=== PATIENT | female | born 1975 | race Caucasian/White ===

== ENCOUNTER → 2016-10-01 | Outpatient (CLI) | payer BC ==
--- NOTE | 2016-10-01 16:57 | CT ---
EXAMINATION TYPE: CT abdomen pelvis wo con DATE OF EXAM: 10/01/2016 4:14 PM COMPARISON: NONE INDICATION: Right lower quadrant pain DLP: 991 mGycm, Automated exposure control for dose reduction was used. CONTRAST: None Study performed without Oral Contrast TECHNIQUE: Axial images were obtained from above the diaphragm to the pubic rami in the axial plane a t 5 mm thick sections. Reconstructed images are reviewed on the computer in the coronal plane. FINDINGS: Limited CT sections are obtained the lung bases. The lung bases are clear. CT ABDOMEN: Liver: Normal Spleen: Normal Pancreas: Normal Adrenal glands: There is a 1.2 cm thickening of the distal tail of the right adrenal gland. There is diffuse thickening of the left adrenal gland 1.2 cm. Gallbladder: Decompressed. Kidneys: No masses are evident. No hydronephrosis is present. No cysts are present. Aorta: Minimal vascular calcification is within the aorta. Inferior vena cava: Normal. CT PELVIS: Loops of bowel within the abdomen and pelvis are normal. There are loops of bowel which are incom pletely distended or lack oral contrast limiting their evaluation. Appendix: Normal as visualized. Urinary bladder: Normal. Genitourinary structures: Uterus and ovaries are not identified. Osseous structures: No suspicious lytic or sclerotic lesions. IMPRESSIONS: 1. Small nodules bilateral adrenal glands. 2. Normal appendix. No suspicious changes for acute appendicitis are identified.
== END | disposition home or self-care (01) ==
LOC: RADCTMAIN 15:27
PROVIDERS: ATTEND Family Medicine
DX: E27.9 Disorder of adrenal gland, unspecified (principal)
CPT/HCPCS: 74176

== ENCOUNTER → 2016-10-07 | Outpatient (CLI) | payer BC | END | disposition home or self-care (01) | LOC: LABWHC1 06:58 | PROVIDERS: ATTEND Nurse Practitioner Adult Health | DX: E27.8 Other specified disorders of adrenal gland (principal) | CPT/HCPCS: 36415; 82088; 82530; 82533 ==

== ENCOUNTER → 2017-02-08 | Outpatient (CLI) | payer BC ==
--- NOTE | 2017-02-08 09:33 | CT ---
EXAMINATION TYPE: CT sinus wo con DATE OF EXAM: 02/08/2017 COMPARISON: NONE HISTORY: Pain around Lt eye and under both eyes, acute sinusitis CT DLP: 577.[address] of the paranasal sinuses was performed in the axial and coronal planes. Bone and soft tissue settings are submitted. The paranasal sinuses demonstrate normal aeration and development. The paranasal sinuses are free of mucosal thickening or air fluid level. The osteal meatal units are patent bilaterally. The nasal septum is midline. No bony destructive changes are seen within the field of view. IMPRESSION: Normal unenhanced CT of the paranasal sinuses.
== END | disposition home or self-care (01) ==
LOC: RADCTMAIN 08:43
PROVIDERS: ATTEND Otolaryngology
DX: J01.90 Acute sinusitis, unspecified (principal)
CPT/HCPCS: 70486

== ENCOUNTER 2017-09-11 11:20 | Emergency (ER) | payer BC ==
[2017-09-11] MEDS ORDERED: SODIUM CHLORIDE 0.9% 1,000 ML IV STA (12:13)
--- NOTE | 2017-09-11 12:28 | ED ---
General Adult HPI - General Chief complaint: Abdominal Pain Stated complaint: abdominal pain, radiating across and hip, lower ba Time Seen by Provider: 09/11/17 11:58 Source: patient, RN notes reviewed Mode of arrival: wheelchair Limitations: no limitations - History of Present Illness Initial comments: 42 yo female presents to the ER with cc of left-sided abdominal pain. She states she's had this for about a week now. She went to the doctor on Friday they thought may be a gastrointestinal issue. She is clear liquid diet. She states that she continues to have this pain and now she's having some central abdominal cramping. She makes to extensive surgery in the pelvic area. They were concerned due to her continued pain and the fact that does not seem to be improving so she thought that she should.Patient denies any recent fever, chills, shortness of breath, chest pain, back pain, nausea vomiting, numbness or tingling, dysuria or hematuria, constipation or diarrhea, headaches or visual changes, or any other current symptoms. - Related Data Previous Rx's Medication Instructions Recorded Dicyclomine [Bentyl] 10 mg PO TID #20 capsule 09/11/17 Allergies Allergy/AdvReac Type Severity Reaction Status Date / Time amoxicillin [Amoxicillin] Allergy Rash/Hives Verified 09/11/17 12:34 aspirin Allergy Rash/Hives Verified 09/11/17 12:34 cephalexin monohydrate Allergy Anaphylaxis Verified 09/11/17 12:34 [From Keflex] ciprofloxacin [From Cipro] Allergy Rash/Hives Verified 09/11/17 12:34 ciprofloxacin HCl Allergy Rash/Hives Verified 09/11/17 12:34 [From Cipro] diphenhydramine Allergy Rash/Hives Verified 09/11/17 12:34 [From Benadryl] Iodinated Contrast- Oral and Allergy Lip Verified 09/11/17 12:34 IV Dye Swelling [Iodinated Contrast Media - IV Dye] latex Allergy Rash/Hives Verified 09/11/17 12:34 methylprednisolone Allergy Rash/Hives Verified 09/11/17 12:34 [From Solu-Medrol] NSAIDS (Non-Steroidal Allergy Rash/Hives Verified 09/11/17 12:34 Anti-Inflamma penicillin G Allergy Rash/Hives Verified 09/11/17 12:34 sulfamethoxazole Allergy Rash/Hives Verified 09/11/17 12:34 [From Bactrim] trimethoprim [From Bactrim] Allergy Rash/Hives Verified 09/11/17 12:34 STEROIDS Allergy Rash/Hives Uncoded 09/11/17 12:34 Review of Systems ROS Statement: Those systems with pertinent positive or pertinent negative responses have been documented in the HPI. ROS Other: All systems not noted in ROS Statement are negative. Past Medical History Past Medical History: Asthma, GERD/Reflux, Hearing Disorder / Deafness Additional Past Medical History / Comment(s): HIATAL HERNIA, pelvic muscle disorder, adrenal ademoma History of Any Multi-Drug Resistant Organisms: None Reported Past Surgical History: Section, Hernia Repair, Hysterectomy Additional Past Surgical History / Comment(s): OOPHERECTOMY, WITH ADHESION REPAIR Past Psychological History: Anxiety Smoking Status: Current every day smoker Past Alcohol Use History: None Reported Past Drug Use History: None Reported General Exam Limitations: no limitations Head exam: Present: atraumatic, normocephalic, normal inspection ENT exam: Present: normal exam, mucous membranes moist Neck exam: Present: normal inspection. Absent: tenderness, meningismus, lymphadenopathy Respiratory exam: Present: normal lung sounds bilaterally. Absent: respiratory distress, wheezes, rales, rhonchi, stridor Cardiovascular Exam: Present: regular rate, normal rhythm, normal heart sounds. Absent: systolic murmur, diastolic murmur, rubs, gallop, clicks GI/Abdominal exam: Present: soft, tenderness (Mild suprapubic), normal bowel sounds. Absent: distended, guarding, rebound, rigid Back exam: Present: normal inspection, full ROM. Absent: tenderness Neurological exam: Present: alert, oriented X3 Psychiatric exam: Present: normal affect, normal mood Course Vital Signs 09/11/17 09/11/17 09/11/17 11:49 12:55 13:10 Temperature 97.8 F Pulse Rate 76 68 71 Respiratory 16 18 20 Rate Blood Pressure 156/97 162/82 135/82 O2 Sat by Pulse 100 100 99 Oximetry Medical Decision Making - Medical Decision Making 42-year-old female presents for left-sided abdominal pain. At this time CAT scan has been reviewed. We did discuss the adrenal glands and she states she has had a history of cysts on the she's having him followed before. He discussed the concern for possible colitis. We discussed this is consistent with her symptoms. We did discuss close follow-up with her doctor. We will start her on Bentyl for home. We discussed return parameters all questions. Patient stated that she understood we did discuss other etiologies. She is in agreement with this plan. All questions have been answered. At this time the patient will be discharged home. - Lab Data Result diagrams: 09/11/17 12:44 09/11/17 12:44 Lab Results 09/11/17 09/11/17 09/11/17 Range/Units 12:44 12:44 12:44 WBC 8.5 (3.8-10.6) k/uL RBC 5.00 (3.80-5.40) m/uL Hgb 14.7 (11.4-16.0) gm/dL Hct 46.4 H (34.0-46.0) % MCV 92.8 (80.0-100.0) fL MCH 29.4 (25.0-35.0) pg MCHC 31.6 (31.0-37.0) g/dL RDW 12.6 (11.5-15.5) % Plt Count 256 (150-450) k/uL Neutrophils % 56 % Lymphocytes % 34 % Monocytes % 5 % Eosinophils % 2 % Basophils % 1 % Neutrophils # 4.8 (1.3-7.7) k/uL Lymphocytes # 2.9 (1.0-4.8) k/uL Monocytes # 0.4 (0-1.0) k/uL Eosinophils # 0.2 (0-0.7) k/uL Basophils # 0.1 (0-0.2) k/uL Sodium 142 (137-145) mmol/L Potassium 4.9 (3.5-5.1) mmol/L Chloride 110 H (98-107) mmol/L Carbon Dioxide 22 (22-30) mmol/L Anion Gap 10 mmol/L BUN 8 (7-17) mg/dL Creatinine 0.66 (0.52-1.04) mg/dL Est GFR (MDRD) Af Amer >60 (>60 ml/min/1.73 sqM) Est GFR (MDRD) Non-Af >60 (>60 ml/min/1.73 sqM) Glucose 97 (74-99) mg/dL Calcium 9.6 (8.4-10.2) mg/dL Total Bilirubin 0.6 (0.2-1.3) mg/dL AST 30 (14-36) U/L ALT 19 (9-52) U/L Alkaline Phosphatase 76 (38-126) U/L Total Protein 7.6 (6.3-8.2) g/dL Albumin 4.5 (3.5-5.0) g/dL Amylase 77 (30-110) U/L Lipase 128 (23-300) U/L Urine Color Yellow Urine Appearance Clear (Clear) Urine pH 6.5 (5.0-8.0) Ur Specific A[place]lia 1.007 (1.001-1.035) Urine Protein Negative (Negative) Urine Glucose (UA) Negative (Negative) Urine Ketones Negative (Negative) Urine Blood Small H (Negative) Urine Nitrite Negative (Negative) Urine Bilirubin Negative (Negative) Urine Urobilinogen <2.0 (<2.0) mg/dL Ur Leukocyte Esterase Negative (Negative) Urine RBC 1 (0-5) /hpf Urine WBC 1 (0-5) /hpf Ur Squamous Epith Cells 4 (0-4) /hpf Urine Mucus Rare H (None) /hpf - Radiology Data Radiology results: report reviewed, image reviewed Disposition Clinical Impression: Colitis Disposition: HOME SELF-CARE Condition: Stable Instructions: Colitis (ED) Additional Instructions: Please use medication as discussed. Please follow up with family doctor if symptoms have not improved over the next two days. Please return to the emergency room if your symptoms increase or worsen or for any other concerns. Prescriptions: Dicyclomine [Bentyl] 10 mg PO TID #20 capsule Referrals: Franco Sabillon MD [Primary Care Provider] - 1-2 days Scott Galvan MD [STAFF PHYSICIAN] - 1-2 days Time of Disposition: 14:32
[2017-09-11 13:09] LABS: ALT 19 U/L (9-52); AST 30 U/L (14-36); Albumin 4.5 g/dL (3.5-5.0); Alkaline Phosphatase 76 U/L (38-126); Amylase 77 U/L (30-110); Anion Gap 10 mmol/L; Basophils # (A) 0.1 k/uL (0-0.2); Basophils % (A) 1 %; Blood Urea Nitrogen 8 mg/dL (7-17); Calcium 9.6 mg/dL (8.4-10.2); Carbon Dioxide 22 mmol/L (22-30); Chloride 110 mmol/L (98-107); Eosinophils # (A) 0.2 k/uL (0-0.7); Eosinophils % (A) 2 %; Glucose 97 mg/dL (74-99); HCT 46.4 % (34.0-46.0); HGB 14.7 gm/dL (11.4-16.0); Lipase 128 U/L (23-300); Lymphocytes # (A) 2.9 k/uL (1.0-4.8); Lymphocytes % (A) 34 %; MCH 29.4 pg (25.0-35.0); MCHC 31.6 g/dL (31.0-37.0); MCV 92.8 fL (80.0-100.0); Mean Platelet Volume 7.5; Monocytes # (A) 0.4 k/uL (0-1.0); Monocytes % (A) 5 %; Neutrophils # (A) 4.8 k/uL (1.3-7.7); Neutrophils % (A) 56 %; Platelet Count 256 k/uL (150-450); RDW 12.6 % (11.5-15.5); Sodium 142 mmol/L (137-145); Total Bilirubin 0.6 mg/dL (0.2-1.3); Total Protein 7.6 g/dL (6.3-8.2); WBC 8.5 k/uL (3.8-10.6)
[2017-09-11 13:19] LABS: Potassium 4.9 mmol/L (3.5-5.1)
[2017-09-11 13:33] LABS: Appearance,Urine Clear (Clear); Bilirubin,Urine Negative (Negative); Blood,Urine Small (Negative); Color,Urine Yellow; Glucose,Urine (UA) Negative (Negative); Ketones,Urine Negative (Negative); Leukocyte Esterase,Urine Negative (Negative); Mucus,Urine Rare /hpf; Nitrite,Urine Negative (Negative); PH, Urine 6.5 (5.0-8.0); Protein,Urine Negative (Negative); RBC,Urine 1 /hpf (0-5); Specific Gravity,Urine 1.007 (1.001-1.035); Squamous Epithelial Cell,Urine 4 /hpf (0-4); Urobilinogen,Urine <2.0 mg/dL (<2.0); WBC,Urine 1 /hpf (0-5)
--- NOTE | 2017-09-11 14:24 | CT ---
EXAMINATION TYPE: CT abdomen pelvis wo con DATE OF EXAM: 09/11/2017 COMPARISON: NONE HISTORY: Patient complains of epigastric to LUQ pain. CT DLP: 408.2 mGycm Automated exposure control for dose reduction was used. TECHNIQUE: Helical acquisition of images from the lung bases through the pelvis. FINDINGS: LUNG BASES: Some minimal areas of groundglass opacity suspected bilaterally. AORTA: No significant abnormality is appreciated. LIVER/GB: No significant abnormality is appreciated. PANCREAS: No significant abnormality is seen. SPLEEN: No significant abnormality is seen. ADRENALS: Right adrenal gland shows an 18 mm low-attenuation lesion likely adenoma, left adrenal glan d also shows some fullness in low attenuation likely adenoma. KIDNEYS: No significant abnormality is seen. REPRODUCTIVE ORGANS: Uterus and adnexal structures are not seen. URINARY BLADDER: No significant abnormality is seen. BOWEL: I question colonic wall thickening. Surgical clip is present in the pelvis the level of the c ul-de-sac. FREE AIR: No Free Air is visible. ASCITES: None visible. PELVIC ADENOPATHY: None visualized. RETROPERITONEAL ADENOPATHY: No Retroperitoneal Adenopathy visible. OSSEOUS STRUCTURES: No significant abnormality is seen. IMPRESSION: NONCONTRAST EXAM. THERE MAY BE UNDERLYING ALVEOLITIS AT THE LUNG BASES, CORRELATE. CORRELATE TO EXCLU DE COLITIS, ENTERITIS. FOLLOW-UP INDICATED. ADDITIONAL FINDINGS ABOVE. MRI MAY BE OF BENEFIT ADREN AL GLANDS. FOLLOW-UP TO ASSESS FOR STABILITY.
[2017-09-11] MEDS ORDERED: DICYCLOMINE 10 MG/ML 2 ML AMP IM STA (14:29)
[2017-09-11] MEDS ORDERED: FAMOTIDINE 20 MG/2 ML VIAL IV STA (14:29)
[2017-09-11 14:54] VITALS: BP 163/78; PULSE 72; RESP 18; TEMP 98
== END 2017-09-11 14:54 | disposition home or self-care (01) ==
LOC: EC 11:20
DX: O99.619 Diseases of the digestive system complicating pregnancy, unspecified trimester (principal); K52.9 Noninfective gastroenteritis and colitis, unspecified; O99.330 Smoking (tobacco) complicating pregnancy, unspecified trimester; F17.200 Nicotine dependence, unspecified, uncomplicated; Z88.0 Allergy status to penicillin; Z88.6 Allergy status to analgesic agent; Z88.1 Allergy status to other antibiotic agents; Z88.8 Allergy status to other drugs, medicaments and biological substances; Z91.041 Radiographic dye allergy status; Z91.040 Latex allergy status; Z88.2 Allergy status to sulfonamides; Z53.20 Procedure and treatment not carried out because of patient's decision for unspecified reasons; Z3A.00 Weeks of gestation of pregnancy not specified
CPT/HCPCS: 36415; 74176; 80053; 81001; 82150; 83690; 85025; 87086; 96360; 99284

== ENCOUNTER 2017-10-15 17:28 | Emergency (ER) | payer BC ==
[2017-10-15 17:32] VITALS: RESP 18; TEMP 98.4
--- NOTE | 2017-10-15 17:51 | ED ---
General Adult HPI - General Chief complaint: Back Pain/Injury Stated complaint: right rib pain Time Seen by Provider: 10/15/17 17:33 Source: patient, RN notes reviewed Mode of arrival: ambulatory Limitations: no limitations - History of Present Illness Initial comments: 42-year-old female presents to the emergency department with a chief complaint of right-sided rib pain. Patient states she was leaning over the bathtub giving her niece. Back and she leaned on her rib and felt a pop. Patient states she she had an instant of pain and then it went away. Patient states when she woke up she still has not seen. States she touches her rib just right elbow causes her discomfort. She states she takes a big deep breaths she'll feel that rib pop. She states that she is not short of breath with this. It does not radiate into her abdomen. She states that she even touches the side of the rib it'll cause pain to the front of the right. She denies any other injuries with this. She denies any shortness of breath with this. She denies or chills. She states she's been taking Tylenol which hasn't given her much relief. She states that she just moves or takes in a certain way she'll continue to have pain so she thought that she should be seen. Patient denies any recent fever, chills, shortness of breath, chest pain, back pain, abdominal pain, nausea vomiting, numbness or tingling, dysuria or hematuria, constipation or diarrhea, headaches or visual changes, or any other current symptoms. - Related Data Home Medications Medication Instructions Recorded Confirmed No Known Home Medications [No 10/15/17 10/15/17 Known Home Medications] Allergies Allergy/AdvReac Type Severity Reaction Status Date / Time amoxicillin [Amoxicillin] Allergy Rash/Hives Verified 10/15/17 17:49 aspirin Allergy Rash/Hives Verified 10/15/17 17:49 cephalexin monohydrate Allergy Anaphylaxis Verified 10/15/17 17:49 [From Keflex] ciprofloxacin [From Cipro] Allergy Rash/Hives Verified 10/15/17 17:49 ciprofloxacin HCl Allergy Rash/Hives Verified 10/15/17 17:49 [From Cipro] diphenhydramine Allergy Rash/Hives Verified 10/15/17 17:49 [From Benadryl] Iodinated Contrast- Oral and Allergy Lip Verified 10/15/17 17:49 IV Dye Swelling [Iodinated Contrast Media - IV Dye] latex Allergy Rash/Hives Verified 10/15/17 17:49 methylprednisolone Allergy Rash/Hives Verified 10/15/17 17:49 [From Solu-Medrol] NSAIDS (Non-Steroidal Allergy Rash/Hives Verified 10/15/17 17:49 Anti-Inflamma penicillin G Allergy Rash/Hives Verified 10/15/17 17:49 sulfamethoxazole Allergy Rash/Hives Verified 10/15/17 17:49 [From Bactrim] trimethoprim [From Bactrim] Allergy Rash/Hives Verified 10/15/17 17:49 STEROIDS Allergy Rash/Hives Uncoded 10/15/17 17:32 Review of Systems ROS Statement: Those systems with pertinent positive or pertinent negative responses have been documented in the HPI. ROS Other: All systems not noted in ROS Statement are negative. Past Medical History Past Medical History: Asthma, GERD/Reflux, Hearing Disorder / Deafness Additional Past Medical History / Comment(s): HIATAL HERNIA, pelvic muscle disorder, adrenal ademoma History of Any Multi-Drug Resistant Organisms: None Reported Past Surgical History: Section, Hernia Repair, Hysterectomy Additional Past Surgical History / Comment(s): OOPHERECTOMY, WITH ADHESION REPAIR Past Psychological History: Anxiety Smoking Status: Current every day smoker Past Alcohol Use History: None Reported Past Drug Use History: None Reported General Exam Limitations: no limitations General appearance: alert, in no apparent distress ENT exam: Present: normal exam, mucous membranes moist Neck exam: Present: normal inspection. Absent: tenderness, meningismus, lymphadenopathy Respiratory exam: Present: normal lung sounds bilaterally, chest wall tenderness (Right anterior rib lower). Absent: respiratory distress, wheezes, rales, rhonchi, stridor Cardiovascular Exam: Present: regular rate ( and lower), normal rhythm, normal heart sounds. Absent: systolic murmur, diastolic murmur, rubs, gallop, clicks GI/Abdominal exam: Present: soft, normal bowel sounds. Absent: distended, tenderness, guarding, rebound, rigid Neurological exam: Present: alert, oriented X3 Psychiatric exam: Present: normal affect, normal mood Skin exam: Present: warm, dry, intact, normal color. Absent: rash Course Vital Signs 10/15/17 17:30 Temperature 98.4 F Pulse Rate 74 Respiratory 18 Rate Blood Pressure 147/68 O2 Sat by Pulse 98 Oximetry Medical Decision Making - Medical Decision Making 42-year-old female presents to the emergency Department what appears to be right rib sprain. It is tender to touch and reproducible to touch. X-rays reviewed and negative. This time we discussed continued use of Tylenol. We did discuss ice. We discussed return parameters. She has been given plan. All questions have been answered. - Radiology Data Radiology results: report reviewed, image reviewed Disposition Clinical Impression: Sprain of ribs, initial encounter Disposition: HOME SELF-CARE Condition: Stable Instructions: Rib Contusion (ED) Additional Instructions: Please use medication as discussed. Please follow up with family doctor if symptoms have not improved over the next two days. Please return to the emergency room if your symptoms increase or worsen or for any other concerns. Referrals: Franco Sabillon MD [Primary Care Provider] - 1-2 days Time of Disposition: 18:46
--- NOTE | 2017-10-15 18:34 | XR ---
EXAMINATION TYPE: XR ribs RT w pa chest xray DATE OF EXAM: 10/15/2017 COMPARISON: 03/15/2015 HISTORY: Rib pain TECHNIQUE: 5 views FINDINGS: Heart and mediastinum are normal. Lungs are clear of consolidation. There is no sign of ple ural effusion or pneumothorax. I see no rib fracture. IMPRESSION: No active cardiopulmonary disease. No rib fracture seen. No change.
[2017-10-15 19:01] VITALS: BP 168/76; PULSE 63
== END 2017-10-15 18:59 | disposition home or self-care (01) ==
LOC: EC 17:28
DX: S23.41XA Sprain of ribs, initial encounter (principal); F17.200 Nicotine dependence, unspecified, uncomplicated; Z88.0 Allergy status to penicillin; Z88.1 Allergy status to other antibiotic agents; Z88.2 Allergy status to sulfonamides; Z88.6 Allergy status to analgesic agent; Z88.8 Allergy status to other drugs, medicaments and biological substances; Z91.040 Latex allergy status; Z91.041 Radiographic dye allergy status; X50.0XXA Overexertion from strenuous movement or load, initial encounter
CPT/HCPCS: 99283

== ENCOUNTER → 2019-07-07 | Outpatient (CLI) | payer BC ==
--- NOTE | 2019-07-08 13:26 | MM ---
Reason for exam: screening (asymptomatic). Last mammogram was performed 1 year and 3 months ago. History: Family history of breast cancer in aunt and breast cancer in grandmother. Physical Findings: A clinical breast exam by your physician is recommended on an annual basis and results should be correlated with mammographic findings. MG 3D Screening Mammo W/Cad Bilateral CC and MLO view(s) were taken. Prior study comparison: April 07, 2018, mammogram, performed at [facility]. There are scattered fibroglandular densities. No suspicious abnormality. No significant changes when compared with prior studies. ASSESSMENT: Negative, BI-RAD 1 RECOMMENDATION: Routine screening mammogram of both breasts in 1 year.
== END | disposition home or self-care (01) ==
LOC: RADMAMWWP 14:06
PROVIDERS: ATTEND Family Medicine
DX: Z12.31 Encounter for screening mammogram for malignant neoplasm of breast (principal)
CPT/HCPCS: 77063; 77067

== ENCOUNTER → 2020-02-08 | Outpatient (CLI) | payer BC ==
--- NOTE | 2020-02-08 09:26 | CT ---
EXAMINATION TYPE: CT abdomen pelvis wo con DATE OF EXAM: 02/08/2020 COMPARISON: Prior CT 09/11/2017 HISTORY: LLQ pain with diarrhea for [address] DLP: 575.3 mGycm Automated exposure control for dose reduction was used. TECHNIQUE: Helical acquisition of images from the lung bases through the pelvis. FINDINGS: Lung bases show probable mosaic perfusion, may reflect areas of hypoventilatory change as o n prior, there is no pleural or pericardial effusion. Lack of contrast may compromise sensitivity of the exam. AORTA: No significant abnormality is appreciated. LIVER/GB: No significant abnormality is appreciated. PANCREAS: No significant abnormality is seen. SPLEEN: No significant abnormality is seen. ADRENALS: Left adrenal gland shows a 14 mm low dense focus likely adenoma right adrenal gland also sh ows a similar appearance with low dense mass 16 mm likely adenoma, findings are stable. KIDNEYS: No significant abnormality is seen. REPRODUCTIVE ORGANS: Not seen. URINARY BLADDER: No significant abnormality is seen. BOWEL: Low density throughout the colon. Appendix is normal. FREE AIR: No Free Air is visible. ASCITES: None visible. PELVIC ADENOPATHY: None visualized. RETROPERITONEAL ADENOPATHY: No Retroperitoneal Adenopathy visible. OSSEOUS STRUCTURES: Degenerative changes noted at the lumbosacral junction. IMPRESSION: CORRELATE FOR COLITIS. ADRENAL ADENOMAS. NONCONTRAST EXAM. Additional findings above.
== END | disposition home or self-care (01) ==
LOC: RADCTMAIN 08:50
PROVIDERS: ATTEND Family Medicine
DX: K57.92 Diverticulitis of intestine, part unspecified, without perforation or abscess without bleeding (principal)
CPT/HCPCS: 74176

== ENCOUNTER 2020-05-14 11:58 | Emergency (ER) | payer BC ==
[2020-05-14 12:06] VITALS: BP 167/95; PULSE 82; RESP 16; TEMP 99.1
--- NOTE | 2020-05-14 12:27 | ED ---
ENT HPI - General Chief complaint: ENT Stated complaint: lump in nose and face pain Time Seen by Provider: 05/14/20 12:14 Source: patient, RN notes reviewed Mode of arrival: ambulatory Limitations: no limitations - History of Present Illness Initial comments: 45-year-old female presented to emergency department with chief complaint of left nostril cyst. Patient states started recently was seen by ENT visit seem to be increasing. They told her there was just a cystoscopy was not infected she states that the irritated her nostril and states that isn't inflamed now. Patient states she has multiple drug ALLERGIES. Patient has appears or chills she did try some Flonase. Patient states that she does have close follow-up - Related Data Previous Rx's Medication Instructions Recorded Azithromycin [Zithromax Z-pack (6 0 mg PO DIRECTED #1 pack 05/14/20 tabs)] Allergies Allergy/AdvReac Type Severity Reaction Status Date / Time amoxicillin [Amoxicillin] Allergy Rash/Hives Verified 05/14/20 12:06 aspirin Allergy Rash/Hives Verified 05/14/20 12:06 cephalexin monohydrate Allergy Anaphylaxis Verified 05/14/20 12:06 [From Keflex] ciprofloxacin [From Cipro] Allergy Rash/Hives Verified 05/14/20 12:06 ciprofloxacin HCl Allergy Rash/Hives Verified 05/14/20 12:06 [From Cipro] diphenhydramine Allergy Rash/Hives Verified 05/14/20 12:06 [From Benadryl] Iodinated Contrast Media Allergy Lip Verified 05/14/20 12:06 [Iodinated Contrast Media - Swelling IV Dye] latex Allergy Rash/Hives Verified 05/14/20 12:06 methylprednisolone Allergy Rash/Hives Verified 05/14/20 12:06 [From Solu-Medrol] NSAIDS (Non-Steroidal Allergy Rash/Hives Verified 05/14/20 12:06 Anti-Inflamma penicillin G Allergy Rash/Hives Verified 05/14/20 12:06 sulfamethoxazole Allergy Rash/Hives Verified 05/14/20 12:06 [From Bactrim] trimethoprim [From Bactrim] Allergy Rash/Hives Verified 05/14/20 12:06 STEROIDS Allergy Rash/Hives Uncoded 05/14/20 12:06 Review of Systems ROS Statement: Those systems with pertinent positive or pertinent negative responses have been documented in the HPI. ROS Other: All systems not noted in ROS Statement are negative. Past Medical History Past Medical History: Asthma, GERD/Reflux, Hearing Disorder / Deafness Additional Past Medical History / Comment(s): HIATAL HERNIA, pelvic muscle disorder, adrenal ademoma History of Any Multi-Drug Resistant Organisms: None Reported Past Surgical History: Section, Hernia Repair, Hysterectomy Additional Past Surgical History / Comment(s): OOPHERECTOMY, WITH ADHESION REPAIR Past Psychological History: Anxiety Smoking Status: Current every day smoker Past Alcohol Use History: None Reported Past Drug Use History: None Reported General Exam Limitations: no limitations General appearance: alert, in no apparent distress Head exam: Present: atraumatic, normocephalic, normal inspection Eye exam: Present: normal appearance, PERRL, EOMI. Absent: scleral icterus, conjunctival injection, periorbital swelling ENT exam: Present: normal oropharynx, mucous membranes moist, TM's normal bilaterally, normal external ear exam, other (Left nostril on the base there is small fluctuant cysts, there is erythema and nasal mucosa). Absent: normal exam Neck exam: Present: normal inspection. Absent: tenderness, meningismus, lymphadenopathy Respiratory exam: Present: normal lung sounds bilaterally. Absent: respiratory distress, wheezes, rales, rhonchi, stridor Cardiovascular Exam: Present: regular rate, normal rhythm, normal heart sounds. Absent: systolic murmur, diastolic murmur, rubs, gallop, clicks Course Vital Signs 05/14/20 12:03 Temperature 99.1 F Pulse Rate 82 Respiratory 16 Rate Blood Pressure 167/95 O2 Sat by Pulse 98 Oximetry Medical Decision Making - Medical Decision Making 45-year-old female presented for left nostril pain, cyst. There appears to be superficial infection of the nasal surface. There is a cyst noted that is not infected. Patient reports that she has severe ALLERGIES to almost all antibiotics only antibiotics she is willing to take his azithromycin. We discussed possibility of topical antibiotics patient refuses. She'll follow-up with ENT and return for any worsening symptoms. Disposition Clinical Impression: Cyst of nasal cavity Disposition: HOME SELF-CARE Condition: Stable Instructions (If sedation given, give patient instructions): Cyst (ED) Additional Instructions: Please return to the Emergency Department if symptoms worsen or any other concerns. Prescriptions: Azithromycin [Zithromax Z-pack (6 tabs)] 0 mg PO DIRECTED #1 pack Is patient prescribed a controlled substance at d/c from ED?: No Referrals: Franco Sabillon MD [Primary Care Provider] - 1-2 days Time of Disposition: 12:27
== END 2020-05-14 12:53 | disposition home or self-care (01) ==
LOC: EC 11:58
DX: J34.1 Cyst and mucocele of nose and nasal sinus (principal); H91.90 Unspecified hearing loss, unspecified ear; F17.200 Nicotine dependence, unspecified, uncomplicated; Z88.0 Allergy status to penicillin; Z88.6 Allergy status to analgesic agent; Z88.1 Allergy status to other antibiotic agents; Z91.041 Radiographic dye allergy status; Z91.040 Latex allergy status; Z88.8 Allergy status to other drugs, medicaments and biological substances; Z88.2 Allergy status to sulfonamides
CPT/HCPCS: 99283

== ENCOUNTER 2020-07-25 12:22 | Emergency (ER) | payer BC ==
[2020-07-25 12:26] VITALS: RESP 16; TEMP 98.8
[2020-07-25] MEDS ORDERED: SODIUM CHLORIDE 0.9% 1,000 ML IV STA (12:43)
--- NOTE | 2020-07-25 12:48 | ED ---
General Adult HPI - General Chief complaint: Abdominal Pain Stated complaint: abd pain Time Seen by Provider: 07/25/20 12:36 Source: patient, RN notes reviewed Mode of arrival: ambulatory Limitations: no limitations - History of Present Illness Initial comments: 45-year-old female with a past medical history of GERD, hiatal hernia, pelvic still disorder resents to the emergency room for lower abdominal pain. States this has been on and off for about 5 days. States it comes and goes. Denies any pain at this time. Patient has been having diarrhea for the past 5 days on and off. Patient states when she drinks a lot of fluids this worsens the bianca rrhea. Patient states she is also having normal bowel movements. She admits to nausea on and off but denies vomiting. Denies any nausea at this time. Denies fevers or chills. Patient does states she has had pain with urination a few times however denies any burning sensation.patient tested negative for Covid with in the past couple days. Patient has no other complaints at this time including shortness of breath, chest pain, vomiting, headache, or visual changes. - Related Data Home Medications Medication Instructions Recorded Confirmed No Known Home Medications 07/25/20 07/25/20 Allergies Allergy/AdvReac Type Severity Reaction Status Date / Time amoxicillin [Amoxicillin] Allergy Rash/Hives Verified 07/25/20 13:37 aspirin Allergy Rash/Hives Verified 07/25/20 13:37 cephalexin monohydrate Allergy Anaphylaxis Verified 07/25/20 13:37 [From Keflex] ciprofloxacin [From Cipro] Allergy Rash/Hives Verified 07/25/20 13:37 ciprofloxacin HCl Allergy Rash/Hives Verified 07/25/20 13:37 [From Cipro] diphenhydramine Allergy Rash/Hives Verified 07/25/20 13:37 [From Benadryl] Iodinated Contrast Media Allergy Lip Verified 07/25/20 13:37 [Iodinated Contrast Media - Swelling IV Dye] latex Allergy Rash/Hives Verified 07/25/20 13:37 methylprednisolone Allergy Rash/Hives Verified 07/25/20 13:37 [From Solu-Medrol] NSAIDS (Non-Steroidal Allergy Rash/Hives Verified 07/25/20 13:37 Anti-Inflamma penicillin G Allergy Rash/Hives Verified 07/25/20 13:37 sulfamethoxazole Allergy Rash/Hives Verified 07/25/20 13:37 [From Bactrim] trimethoprim [From Bactrim] Allergy Rash/Hives Verified 07/25/20 13:37 STEROIDS Allergy Rash/Hives Uncoded 07/25/20 12:28 Review of Systems ROS Statement: Those systems with pertinent positive or pertinent negative responses have been documented in the HPI. ROS Other: All systems not noted in ROS Statement are negative. Past Medical History Past Medical History: Asthma, GERD/Reflux, Hearing Disorder / Deafness Additional Past Medical History / Comment(s): HIATAL HERNIA, pelvic muscle disorder, adrenal ademoma History of Any Multi-Drug Resistant Organisms: None Reported Past Surgical History: Section, Hernia Repair, Hysterectomy Additional Past Surgical History / Comment(s): OOPHERECTOMY, WITH ADHESION REPAIR Past Psychological History: Anxiety Smoking Status: Current every day smoker Past Alcohol Use History: None Reported Past Drug Use History: None Reported General Exam Limitations: no limitations General appearance: alert, in no apparent distress Head exam: Present: atraumatic, normocephalic, normal inspection Eye exam: Present: normal appearance, PERRL, EOMI. Absent: scleral icterus, conjunctival injection, periorbital swelling ENT exam: Present: normal exam, mucous membranes moist Neck exam: Present: normal inspection, full ROM. Absent: tenderness, meningismus, lymphadenopathy Respiratory exam: Present: normal lung sounds bilaterally. Absent: respiratory distress, wheezes, rales, rhonchi, stridor Cardiovascular Exam: Present: regular rate, normal rhythm, normal heart sounds. Absent: systolic murmur, diastolic murmur, rubs, gallop, clicks GI/Abdominal exam: Present: soft, normal bowel sounds. Absent: distended, tenderness, guarding, rebound, rigid Back exam: Absent: CVA tenderness (R), CVA tenderness (L) Course Vital Signs 07/25/20 12:24 Temperature 98.8 F Pulse Rate 87 Respiratory 16 Rate Blood Pressure 172/91 O2 Sat by Pulse 100 Oximetry Medical Decision Making - Medical Decision Making Those are stable. CBC CMP unremarkable. Urinalysis does not show any evidence of infection. No chance of as patient has a history of hysterectomy and oophorectomy. CT abdomen and pelvis reveals emphysema as well as bilateral lipid rich adrenal adenomas or redemonstrated. Patient is aware of these. No acute inflammatory processes identified. Patient's symptoms could be related to her diarrhea and gastroenteritis Recommend she follow up with her doctor and return here for any worsening symptoms. - Lab Data Result diagrams: 07/25/20 12:53 07/25/20 12:53 Lab Results 07/25/20 07/25/20 07/25/20 Range/Units 12:53 12:53 12:53 WBC 10.5 (3.8-10.6) k/uL RBC 5.17 (3.80-5.40) m/uL Hgb 15.8 (11.4-16.0) gm/dL Hct 47.0 H (34.0-46.0) % MCV 91.0 (80.0-100.0) fL MCH 30.6 (25.0-35.0) pg MCHC 33.7 (31.0-37.0) g/dL RDW 12.8 (11.5-15.5) % Plt Count 297 (150-450) k/uL MPV 6.8 Neutrophils % 54 % Lymphocytes % 38 % Monocytes % 4 % Eosinophils % 1 % Basophils % 2 % Neutrophils # 5.7 (1.3-7.7) k/uL Lymphocytes # 4.0 (1.0-4.8) k/uL Monocytes # 0.5 (0-1.0) k/uL Eosinophils # 0.1 (0-0.7) k/uL Basophils # 0.2 (0-0.2) k/uL Sodium 138 (137-145) mmol/L Potassium 4.6 (3.5-5.1) mmol/L Chloride 109 H (98-107) mmol/L Carbon Dioxide 21 L (22-30) mmol/L Anion Gap 8 mmol/L BUN 9 (7-17) mg/dL Creatinine 0.61 (0.52-1.04) mg/dL Est GFR (CKD-EPI)AfAm >90 (>60 ml/min/1.73 sqM) Est GFR (CKD-EPI)NonAf >90 (>60 ml/min/1.73 sqM) Glucose 103 H (74-99) mg/dL Calcium 9.7 (8.4-10.2) mg/dL Total Bilirubin 0.6 (0.2-1.3) mg/dL AST 27 (14-36) U/L ALT 20 (4-34) U/L Alkaline Phosphatase 98 (38-126) U/L Total Protein 8.2 (6.3-8.2) g/dL Albumin 4.7 (3.5-5.0) g/dL Amylase 94 (30-110) U/L Lipase 133 (23-300) U/L Urine Color Light Yellow Urine Appearance Clear (Clear) Urine pH 6.5 (5.0-8.0) Ur Specific [place] 1.004 (1.001-1.035) Urine Protein Negative (Negative) Urine Glucose (UA) Negative (Negative) Urine Ketones Negative (Negative) Urine Blood Trace H (Negative) Urine Nitrite Negative (Negative) Urine Bilirubin Negative (Negative) Urine Urobilinogen <2.0 (<2.0) mg/dL Ur Leukocyte Esterase Negative (Negative) Urine RBC 1 (0-5) /hpf Urine WBC <1 (0-5) /hpf Ur Squamous Epith Cells 1 (0-4) /hpf Disposition Clinical Impression: Abdominal pain Disposition: HOME SELF-CARE Condition: Good Instructions (If sedation given, give patient instructions): Abdominal Pain (ED), Gastroenteritis (ED) Additional Instructions: Please follow-up with your doctor in one to 2 days. Drink any fluids. If you have any worsening symptoms return to the emergency room. Is patient prescribed a controlled substance at d/c from ED?: No Referrals: Franco Sabillon MD [Primary Care Provider] - 1-2 days Time of Disposition: 15:51
[2020-07-25 13:13] LABS: Basophils # (A) 0.2 k/uL (0-0.2); Basophils % (A) 2 %; Eosinophils # (A) 0.1 k/uL (0-0.7); Eosinophils % (A) 1 %; HGB 15.8 gm/dL (11.4-16.0); Lymphocytes % (A) 38 %; MCH 30.6 pg (25.0-35.0); MCHC 33.7 g/dL (31.0-37.0); Mean Platelet Volume 6.8; Monocytes # (A) 0.5 k/uL (0-1.0); Monocytes % (A) 4 %; Neutrophils # (A) 5.7 k/uL (1.3-7.7); Neutrophils % (A) 54 %; Platelet Count 297 k/uL (150-450); RBC 5.17 m/uL (3.80-5.40); RDW 12.8 % (11.5-15.5); WBC 10.5 k/uL (3.8-10.6)
[2020-07-25 13:16] LABS: Appearance,Urine Clear (Clear); Bilirubin,Urine Negative (Negative); Blood,Urine Trace (Negative); Color,Urine Light Yellow; Glucose,Urine (UA) Negative (Negative); Ketones,Urine Negative (Negative); Leukocyte Esterase,Urine Negative (Negative); Nitrite,Urine Negative (Negative); PH, Urine 6.5 (5.0-8.0); Protein,Urine Negative (Negative); RBC,Urine 1 /hpf (0-5); Specific Gravity,Urine 1.004 (1.001-1.035); Squamous Epithelial Cell,Urine 1 /hpf (0-4); Urobilinogen,Urine <2.0 mg/dL (<2.0); WBC,Urine <1 /hpf (0-5)
[2020-07-25 13:27] LABS: ALT 20 U/L (4-34); AST 27 U/L (14-36); African American GFR (CKD) >90 (>60 ml/min/1.73 sqM); Albumin 4.7 g/dL (3.5-5.0); Alkaline Phosphatase 98 U/L (38-126); Amylase 94 U/L (30-110); Anion Gap 8 mmol/L; Blood Urea Nitrogen 9 mg/dL (7-17); Calcium 9.7 mg/dL (8.4-10.2); Carbon Dioxide 21 mmol/L (22-30); Chloride 109 mmol/L (98-107); Glucose 103 mg/dL (74-99); Lipase 133 U/L (23-300); Non-African American GFR(CKD) >90 (>60 ml/min/1.73 sqM); Potassium 4.6 mmol/L (3.5-5.1); Sodium 138 mmol/L (137-145); Total Bilirubin 0.6 mg/dL (0.2-1.3); Total Protein 8.2 g/dL (6.3-8.2)
--- NOTE | 2020-07-25 15:40 | CT ---
EXAMINATION TYPE: CT abdomen pelvis wo con DATE OF EXAM: 07/25/2020 COMPARISON: 02/08/2020 HISTORY: 45-year-old female subumbilical pelvic pain CT DLP: 742.4 mGycm. Automated exposure control for dose reduction was used. TECHNIQUE: Contiguous axial scanning of the abdomen and pelvis without IV contrast. Coronal and sagit emery reconstructions performed. FINDINGS: Heart normal size without pericardial effusion. Air trapping and emphysematous change in the visualiz ed lower lungs. No pleural effusion. Tiny hiatal hernia. Noncontrast appearance of the liver, gallbladder, kidneys, spleen with hilar splenule, and pancreas s how no gross abnormality by noncontrast CT. No mesenteric or retroperitoneal lymphadenopathy. Low-density 1.6 cm nodule right adrenal gland and 1.5 cm left adrenal gland. No dilated small bowel, free fluid, or free air. Mild stool. No pericolonic inflammatory change. Appendix not clearly identified. No secondary finding s of acute appendicitis in the right lower quadrant. Bladder partially distended. Uterus surgically absent. Neither ovary is visualized. No abnormal fluid collection the pelvis or pelvic lymphadenopathy. Small pelvic lymph nodes. Suspect an old tubal ligation clip within the cul-de-sac, unchanged. Bones: Moderate degenerative disc disease L5-S1. IMPRESSION: 1. Emphysema. Additional air-trapping within the visualized lower lungs could reflect small airways disease. 2. Bilateral lipid rich adrenal adenomas measuring up to 1.6 cm redemonstrated. 3. No acute inflammatory process identified in the abdomen or pelvis to explain the patient's sympto ms.
[2020-07-25 16:00] VITALS: BP 160/87; PULSE 69
== END 2020-07-25 16:00 | disposition home or self-care (01) ==
LOC: EC 12:22
DX: R10.30 Lower abdominal pain, unspecified (principal); R11.0 Nausea; R19.7 Diarrhea, unspecified; D35.02 Benign neoplasm of left adrenal gland; D35.01 Benign neoplasm of right adrenal gland; F17.200 Nicotine dependence, unspecified, uncomplicated; Z88.0 Allergy status to penicillin; Z88.1 Allergy status to other antibiotic agents; Z88.2 Allergy status to sulfonamides; Z88.5 Allergy status to narcotic agent; Z88.6 Allergy status to analgesic agent; Z88.7 Allergy status to serum and vaccine; Z88.8 Allergy status to other drugs, medicaments and biological substances; Z91.040 Latex allergy status; Z91.041 Radiographic dye allergy status; Z90.722 Acquired absence of ovaries, bilateral; Z90.710 Acquired absence of both cervix and uterus
CPT/HCPCS: 36415; 74176; 80053; 81001; 82150; 83690; 85025; 96360; 99284

== ENCOUNTER 2020-07-26 20:24 | Emergency (ER) | payer BC ==
--- NOTE | 2020-07-26 21:22 | XR ---
EXAMINATION TYPE: XR KUB DATE OF EXAM: 07/26/2020 COMPARISON: 03/12/2015 HISTORY: Abdominal pain TECHNIQUE: FINDINGS: There is no sign of intestinal obstruction or pneumoperitoneum. Fecal pattern is normal. Olivia ng bases are clear. There are no pathologic calcifications over the kidneys. There is no evidence of a mass. There is single surgical clip in the midline pelvis. IMPRESSION: Nonacute abdomen. No change.
--- NOTE | 2020-07-26 21:38 | ED ---
Abdominal Pain HPI - General Chief Complaint: Abdominal Pain Stated Complaint: Revisit ABD pain Time Seen by Provider: 07/26/20 20:31 Source: patient Mode of arrival: ambulatory Limitations: no limitations - History of Present Illness Initial Comments: Patient is a 45-year-old female presenting to the emergency Department with complaints of lower abdominal cramping that started this evening after she ate dinner. Patient was seen and evaluated yesterday for similar complaint. She had normal labs and CT of the abdomen. She was diagnosed with possible gastritis or gastroenteritis. Patient states that today she was feeling better had a normal breakfast and lunch, she had showed a chicken and a tortilla for dinner and then started having some lower abdominal cramping. Patient states she felt like she needed to have a bowel movement but wasn't able to. She has been passing gas. She's been having regular bowel movements for the past week. She denies any fever or chills. She denies any nausea or vomiting. She states she does have extensive history of multiple abdominal surgeries for adhesions and hysterectomy, umbilical hernia. She states at this time her cramping is intermittent, she does not want anything for her pain. She denies any other complaints at this time. Upon arrival to the ER, her vital signs are stable. - Related Data Home Medications Medication Instructions Recorded Confirmed Acetaminophen [Tylenol] 1,000 mg PO Q4-6H PRN 07/26/20 07/26/20 Previous Rx's Medication Instructions Recorded Dicyclomine [Bentyl] 20 mg PO TID #20 tablet 07/26/20 Allergies Allergy/AdvReac Type Severity Reaction Status Date / Time amoxicillin [Amoxicillin] Allergy Rash/Hives Verified 07/26/20 20:57 aspirin Allergy Rash/Hives Verified 07/26/20 20:57 cephalexin monohydrate Allergy Anaphylaxis Verified 07/26/20 20:57 [From Keflex] ciprofloxacin [From Cipro] Allergy Rash/Hives Verified 07/26/20 20:57 ciprofloxacin HCl Allergy Rash/Hives Verified 07/26/20 20:57 [From Cipro] diphenhydramine Allergy Rash/Hives Verified 07/26/20 20:57 [From Benadryl] Iodinated Contrast Media Allergy Lip Verified 07/26/20 20:57 [Iodinated Contrast Media - Swelling IV Dye] latex Allergy Rash/Hives Verified 07/26/20 20:57 methylprednisolone Allergy Rash/Hives Verified 07/26/20 20:57 [From Solu-Medrol] NSAIDS (Non-Steroidal Allergy Rash/Hives Verified 07/26/20 20:57 Anti-Inflamma penicillin G Allergy Rash/Hives Verified 07/26/20 20:57 sulfamethoxazole Allergy Rash/Hives Verified 07/26/20 20:57 [From Bactrim] trimethoprim [From Bactrim] Allergy Rash/Hives Verified 07/26/20 20:57 STEROIDS Allergy Rash/Hives Uncoded 07/26/20 20:28 Review of Systems ROS Statement: Those systems with pertinent positive or pertinent negative responses have been documented in the HPI. ROS Other: All systems not noted in ROS Statement are negative. Past Medical History Past Medical History: Asthma, GERD/Reflux, Hearing Disorder / Deafness Additional Past Medical History / Comment(s): HIATAL HERNIA, pelvic muscle disorder, adrenal ademoma History of Any Multi-Drug Resistant Organisms: None Reported Past Surgical History: Section, Hernia Repair, Hysterectomy Additional Past Surgical History / Comment(s): OOPHERECTOMY, WITH ADHESION REPAIR Past Psychological History: Anxiety Smoking Status: Current every day smoker Past Alcohol Use History: None Reported Past Drug Use History: None Reported General Exam - General Exam Comments Initial Comments: GENERAL: Patient is well-developed and well-nourished. Patient is nontoxic and in no acute distress. HEAD: Atraumatic, normocephalic. EYES: Pupils equal round and reactive to light, extraocular movements intact, sclera anicteric, conjunctiva are normal. Eyelids were unremarkable. ENT: TMs normal, nares patent, oropharynx clear without exudates. Moist mucous membranes. NECK: Normal range of motion, supple without lymphadenopathy or JVD. LUNGS: Unlabored respirations. Breath sounds clear to auscultation bilaterally and equal. No wheezes rales or rhonchi. HEART: Regular rate and rhythm without murmurs, rubs or gallops. ABDOMEN: Mild suprapubic tenderness on palpation, no other areas of pain. Soft, normoactive bowel sounds. No guarding, no rebound. No masses appreciated. : Deferred MUSCULOSKELETAL: Normal extremities with adequate strength and normal range of motion, no pitting or edema. No clubbing or cyanosis. NEUROLOGICAL: Patient is alert and oriented x 3. Motor and sensory are also intact. Cranial nerves II through XII grossly intact. Symmetrical smile. Normal speech, normal gait. PSYCH: Normal mood, normal affect. SKIN: Warm, Dry, normal turgor, no rashes or lesions noted. Limitations: no limitations Course Vital Signs 07/26/20 20:26 Temperature 98.9 F Pulse Rate 86 Respiratory 20 Rate Blood Pressure 175/88 O2 Sat by Pulse 99 Oximetry Medical Decision Making - Medical Decision Making He is a 45-year-old female here for lower abdominal cramping that started tonight after she ate dinner. She was evaluated yesterday in the ER for abdominal discomfort, labs and computed tomography scan were normal. She was diagnosed with possible gastritis. Denies any nausea or vomiting or fevers. Her vital signs are stable upon arrival. I did recheck patient's lab work, no acute findings, urine shows no evidence of infection. I did offer patient Bentyl, Toradol as well as fluids however patient declined stating she does not want IV. I did also a KUB which showed no acute abnormalities, no signs of an obstruction. Patient states her pain has been decreasing since she has been in the ER. I discussed with patient that this could be just a viral in nature, mild constipation or gas pains. I recommended MiraLAX for constipation, trial of Bentyl for the cramping. Patient is in agreement this plan of care. She is stable for discharge. She states she'll follow-up with her surgeon, Dr. Stubbs if symptoms persist. Return parameters were discussed with the patient she verbalized understanding. Case discussed Dr. [place]. - Lab Data Result diagrams: 07/26/20 21:41 07/26/20 21:41 Lab Results 07/26/20 07/26/20 07/26/20 Range/Units 21:41 21:41 21:41 WBC 12.3 H (3.8-10.6) k/uL RBC 4.62 (3.80-5.40) m/uL Hgb 14.1 (11.4-16.0) gm/dL Hct 42.6 (34.0-46.0) % MCV 92.2 (80.0-100.0) fL MCH 30.5 (25.0-35.0) pg MCHC 33.1 (31.0-37.0) g/dL RDW 12.8 (11.5-15.5) % Plt Count 264 (150-450) k/uL MPV 6.8 Neutrophils % 63 % Lymphocytes % 29 % Monocytes % 5 % Eosinophils % 2 % Basophils % 1 % Neutrophils # 7.8 H (1.3-7.7) k/uL Lymphocytes # 3.6 (1.0-4.8) k/uL Monocytes # 0.6 (0-1.0) k/uL Eosinophils # 0.2 (0-0.7) k/uL Basophils # 0.1 (0-0.2) k/uL Sodium 140 (137-145) mmol/L Potassium 4.1 (3.5-5.1) mmol/L Chloride 109 H (98-107) mmol/L Carbon Dioxide 25 (22-30) mmol/L Anion Gap 6 mmol/L BUN 10 (7-17) mg/dL Creatinine 0.89 (0.52-1.04) mg/dL Est GFR (CKD-EPI)AfAm >90 (>60 ml/min/1.73 sqM) Est GFR (CKD-EPI)NonAf 79 (>60 ml/min/1.73 sqM) Glucose 112 H (74-99) mg/dL Calcium 9.2 (8.4-10.2) mg/dL Total Bilirubin 0.4 (0.2-1.3) mg/dL AST 36 (14-36) U/L ALT 18 (4-34) U/L Alkaline Phosphatase 78 (38-126) U/L Total Protein 7.4 (6.3-8.2) g/dL Albumin 4.3 (3.5-5.0) g/dL Urine Color Yellow Urine Appearance Clear (Clear) Urine pH 7.0 (5.0-8.0) Ur Specific [place] 1.015 (1.001-1.035) Urine Protein Negative (Negative) Urine Glucose (UA) Negative (Negative) Urine Ketones Negative (Negative) Urine Blood Trace H (Negative) Urine Nitrite Negative (Negative) Urine Bilirubin Negative (Negative) Urine Urobilinogen <2.0 (<2.0) mg/dL Ur Leukocyte Esterase Negative (Negative) Urine RBC 3 (0-5) /hpf Urine WBC 1 (0-5) /hpf Ur Squamous Epith Cells 1 (0-4) /hpf Urine Bacteria Rare H (None) /hpf Disposition Clinical Impression: Abdominal pain Disposition: HOME SELF-CARE Condition: Stable Instructions (If sedation given, give patient instructions): Abdominal Pain (ED) Additional Instructions: Please return to the Emergency Department if symptoms worsen or any other concerns. Trial of Bentyl for abdominal cramping. Trial of MiraLAX for constipation. If symptoms persist follow-up with your surgeon. Prescriptions: Dicyclomine [Bentyl] 20 mg PO TID #20 tablet Is patient prescribed a controlled substance at d/c from ED?: No Referrals: Franco Sabillon MD [Primary Care Provider] - 1-2 days Nathalia Stubbs MD [STAFF PHYSICIAN] - 1-2 days
[2020-07-26 21:51] LABS: Basophils # (A) 0.1 k/uL (0-0.2); Basophils % (A) 1 %; Eosinophils # (A) 0.2 k/uL (0-0.7); Eosinophils % (A) 2 %; HCT 42.6 % (34.0-46.0); HGB 14.1 gm/dL (11.4-16.0); Lymphocytes # (A) 3.6 k/uL (1.0-4.8); Lymphocytes % (A) 29 %; MCH 30.5 pg (25.0-35.0); MCHC 33.1 g/dL (31.0-37.0); MCV 92.2 fL (80.0-100.0); Mean Platelet Volume 6.8; Monocytes # (A) 0.6 k/uL (0-1.0); Monocytes % (A) 5 %; Neutrophils # (A) 7.8 k/uL (1.3-7.7); Neutrophils % (A) 63 %; Platelet Count 264 k/uL (150-450); RBC 4.62 m/uL (3.80-5.40); RDW 12.8 % (11.5-15.5); WBC 12.3 k/uL (3.8-10.6)
[2020-07-26 22:03] LABS: Appearance,Urine Clear (Clear); Bacteria,Urine Rare /hpf; Bilirubin,Urine Negative (Negative); Blood,Urine Trace (Negative); Color,Urine Yellow; Glucose,Urine (UA) Negative (Negative); Ketones,Urine Negative (Negative); Leukocyte Esterase,Urine Negative (Negative); Nitrite,Urine Negative (Negative); Protein,Urine Negative (Negative); RBC,Urine 3 /hpf (0-5); Specific Gravity,Urine 1.015 (1.001-1.035); Squamous Epithelial Cell,Urine 1 /hpf (0-4); Urobilinogen,Urine <2.0 mg/dL (<2.0); WBC,Urine 1 /hpf (0-5)
[2020-07-26 22:07] LABS: ALT 18 U/L (4-34); AST 36 U/L (14-36); African American GFR (CKD) >90 (>60 ml/min/1.73 sqM); Albumin 4.3 g/dL (3.5-5.0); Alkaline Phosphatase 78 U/L (38-126); Anion Gap 6 mmol/L; Blood Urea Nitrogen 10 mg/dL (7-17); Calcium 9.2 mg/dL (8.4-10.2); Carbon Dioxide 25 mmol/L (22-30); Chloride 109 mmol/L (98-107); Glucose 112 mg/dL (74-99); Non-African American GFR(CKD) 79 (>60 ml/min/1.73 sqM); Potassium 4.1 mmol/L (3.5-5.1); Sodium 140 mmol/L (137-145); Total Bilirubin 0.4 mg/dL (0.2-1.3); Total Protein 7.4 g/dL (6.3-8.2)
[2020-07-26 22:44] VITALS: RESP 18
[2020-07-26 22:55] VITALS: BP 180/107; PULSE 77; TEMP 98.1
== END 2020-07-26 22:41 | disposition home or self-care (01) ==
LOC: EC 20:24
DX: R10.30 Lower abdominal pain, unspecified (principal); H91.90 Unspecified hearing loss, unspecified ear; F17.200 Nicotine dependence, unspecified, uncomplicated; Z88.0 Allergy status to penicillin; Z88.6 Allergy status to analgesic agent; Z91.040 Latex allergy status; Z88.1 Allergy status to other antibiotic agents; Z88.8 Allergy status to other drugs, medicaments and biological substances; Z91.041 Radiographic dye allergy status; Z88.2 Allergy status to sulfonamides; Z90.710 Acquired absence of both cervix and uterus
CPT/HCPCS: 36415; 74018; 80053; 81001; 85025; 99284

== ENCOUNTER 2021-09-05 11:19 | Emergency (ER) | payer BC ==
[2021-09-05 11:23] VITALS: TEMP 98.5
[2021-09-05] MEDS ORDERED: SODIUM CHLORIDE 0.9% 500 ML 500 ML IV STA (11:53)
--- NOTE | 2021-09-05 12:10 | ED ---
General Adult HPI - General Source: patient, RN notes reviewed, old records reviewed Mode of arrival: ambulatory Limitations: no limitations - History of Present Illness -: days(s) (3) Location: back (upper back and epigastic) Radiation: non-radiation Severity scale (1-10): 6 Quality: constant Consistency: constant Improves with: none Worsens with: movement Treatments Prior to Arrival: other (Tylenol) <Barry Waggoner - Last Filed: 09/05/21 16:45> <Carol Gunter - Last Filed: 09/07/21 23:34> - General Chief complaint: Back Pain/Injury Stated complaint: Back Pain Time Seen by Provider: 09/05/21 12:00 - History of Present Illness Initial comments: 46 year female presents to the emergency room with complaints of upper back pain between her shoulder blades and epigastric pain that started Friday morning when she woke up. Patient states that she has been working 13 days and the pain is worse with movement. She states that she has had a history of palpitations but no other heart concerns. She denies any chest pain or shortness of breath. She did go to urgent care and they did an EKG and told her it was normal but she should come to the emergency room for evaluation. She has had a history of asthma, GERD and is a half a pack-a-day smoker. (Barry Waggoner) - Related Data Home Medications Medication Instructions Recorded Confirmed Acetaminophen [Tylenol] 1,000 mg PO Q4H PRN 07/26/20 09/05/21 Allergies Allergy/AdvReac Type Severity Reaction Status Date / Time amoxicillin [Amoxicillin] Allergy Rash/Hives Verified 09/05/21 12:37 aspirin Allergy Rash/Hives Verified 09/05/21 12:37 cephalexin monohydrate Allergy Anaphylaxis Verified 09/05/21 12:37 [From Keflex] ciprofloxacin [From Cipro] Allergy Rash/Hives Verified 09/05/21 12:37 ciprofloxacin HCl Allergy Rash/Hives Verified 09/05/21 12:37 [From Cipro] diphenhydramine Allergy Rash/Hives Verified 09/05/21 12:37 [From Benadryl] Iodinated Contrast Media Allergy Lip Verified 09/05/21 12:37 [Iodinated Contrast Media - Swelling IV Dye] latex Allergy Rash/Hives Verified 09/05/21 12:37 methylprednisolone Allergy Rash/Hives Verified 09/05/21 12:37 [From Solu-Medrol] NSAIDS (Non-Steroidal Allergy Rash/Hives Verified 09/05/21 12:37 Anti-Inflamma penicillin G Allergy Rash/Hives Verified 09/05/21 12:37 sulfamethoxazole Allergy Rash/Hives Verified 09/05/21 12:37 [From Bactrim] trimethoprim [From Bactrim] Allergy Rash/Hives Verified 09/05/21 12:37 STEROIDS Allergy Rash/Hives Uncoded 09/05/21 11:23 Review of Systems ROS Other: All systems not noted in ROS Statement are negative. <Barry Waggoner - Last Filed: 09/05/21 16:45> ROS Other: All systems not noted in ROS Statement are negative. <Carol Gunter - Last Filed: 09/07/21 23:34> ROS Statement: Those systems with pertinent positive or pertinent negative responses have been documented in the HPI. Past Medical History Past Medical History: Asthma, GERD/Reflux, Hearing Disorder / Deafness Additional Past Medical History / Comment(s): HIATAL HERNIA, pelvic muscle disorder, adrenal ademoma History of Any Multi-Drug Resistant Organisms: None Reported Past Surgical History: Section, Hernia Repair, Hysterectomy Additional Past Surgical History / Comment(s): OOPHERECTOMY, WITH ADHESION REPAIR Past Psychological History: Anxiety Smoking Status: Current every day smoker Past Alcohol Use History: None Reported Past Drug Use History: None Reported <Barry Waggoner - Last Filed: 09/05/21 16:45> General Exam Limitations: no limitations General appearance: alert, in no apparent distress Eye exam: Present: normal appearance. Absent: scleral icterus, conjunctival injection, periorbital swelling, periorbital tenderness Neck exam: Present: normal inspection, full ROM. Absent: tenderness, meningismus Respiratory exam: Present: normal lung sounds bilaterally. Absent: respiratory distress, chest wall tenderness, accessory muscle use, decreased breath sounds, prolonged expiratory Cardiovascular Exam: Present: regular rate, normal rhythm, normal heart sounds. Absent: JVD GI/Abdominal exam: Present: soft, normal bowel sounds. Absent: distended, tenderness Extremities exam: Present: normal inspection, full ROM, normal capillary refill. Absent: tenderness, pedal edema, joint swelling, calf tenderness Back exam: Present: normal inspection, full ROM. Absent: tenderness, CVA tenderness (R), CVA tenderness (L), rash noted Neurological exam: Present: alert, oriented X3 Psychiatric exam: Present: normal affect, normal mood Skin exam: Present: warm, dry, intact, normal color. Absent: rash, cyanosis, diaphoretic, petechiae, pallor <Barry Waggoner - Last Filed: 09/05/21 16:45> Course Vital Signs 09/05/21 09/05/21 11:20 13:42 Temperature 98.5 F Pulse Rate 71 70 Respiratory 20 18 Rate Blood Pressure 164/81 149/86 O2 Sat by Pulse 100 99 Oximetry EKG Findings - EKG Results: EKG: sinus rhythm (Ventricular rate of 65, LA interval 0.140, QRS 0.105, QTC 0.410) <Barry Waggoner - Last Filed: 09/05/21 16:45> Medical Decision Making - Lab Data Result diagrams: 09/05/21 12:25 09/05/21 12:25 <Barry Waggoner - Last Filed: 09/05/21 16:45> - Lab Data Result diagrams: 09/05/21 12:25 09/05/21 12:25 <Carol Gunter - Last Filed: 09/07/21 23:34> - Medical Decision Making 46 year female presents with complaints of upper back pain and epigastric pain that started Friday morning when she woke up. She states she just worked 13 days straight and the pain is worse with movement. She denies any chest pain or shortness of breath. CBC and electrolytes are unremarkable, troponin is negative at 0.012 and EKG shows sinus rhythm. Chest x-ray shows no acute cardiopulmonary process. This pain is likely musculoskeletal in nature as it is worse with movement. HEART score is low. States her only family history is her father having heart attack in his 50s. Patient was offered norflex and declined related to her numerous ALLERGIES and fearful of an ALLERGIC reaction. I did discuss this case with Dr. Gunter. Patient is agreeable to being discharged home and return the emergency room with any new or concerning symptoms including increased pain, chest pain or difficulty in breathing. She states that she will contact her primary care doctor Dr. Hernández this week. (Barry Waggoner) I was available for consultation in the emergency department. The history and physical exam were done by the midlevel provider. I was consulted for this patients care. I reviewed the case with the midlevel provider and based on their presentation of the patient, I agree with the assessment, medical decision making and plan of care as documented. Chart was dictated using [employer] dictation software. Attempts were made to correct any dictation errors however some typographical errors may persist. Patient was seen during a national state of emergency due to the Covid-19 pandemic. (Carol Gunter) - Lab Data Lab Results 09/05/21 09/05/21 09/05/21 Range/Units 12:25 12:25 12:25 WBC 9.2 (3.8-10.6) k/uL RBC 4.81 (3.80-5.40) m/uL Hgb 14.9 (11.4-16.0) gm/dL Hct 46.0 (34.0-46.0) % MCV 95.5 (80.0-100.0) fL MCH 30.9 (25.0-35.0) pg MCHC 32.4 (31.0-37.0) g/dL RDW 12.9 (11.5-15.5) % Plt Count 299 (150-450) k/uL MPV 7.0 Neutrophils % 53 % Lymphocytes % 38 % Monocytes % 6 % Eosinophils % 1 % Basophils % 1 % Neutrophils # 4.9 (1.3-7.7) k/uL Lymphocytes # 3.5 (1.0-4.8) k/uL Monocytes # 0.6 (0-1.0) k/uL Eosinophils # 0.1 (0-0.7) k/uL Basophils # 0.1 (0-0.2) k/uL Sodium 139 (137-145) mmol/L Potassium 4.3 (3.5-5.1) mmol/L Chloride 108 H (98-107) mmol/L Carbon Dioxide 23 (22-30) mmol/L Anion Gap 8 mmol/L BUN 12 (7-17) mg/dL Creatinine 0.67 (0.52-1.04) mg/dL Est GFR (CKD-EPI)AfAm >90 (>60 ml/min/1.73 sqM) Est GFR (CKD-EPI)NonAf >90 (>60 ml/min/1.73 sqM) Glucose 101 H (74-99) mg/dL Plasma Lactic Acid Ollie 0.8 (0.7-2.0) mmol/L Calcium 9.4 (8.4-10.2) mg/dL Total Bilirubin 0.5 (0.2-1.3) mg/dL AST 25 (14-36) U/L ALT 16 (4-34) U/L Alkaline Phosphatase 75 (38-126) U/L Troponin I (0.000-0.034) ng/mL Total Protein 7.3 (6.3-8.2) g/dL Albumin 4.4 (3.5-5.0) g/dL 09/05/21 Range/Units 12:25 WBC (3.8-10.6) k/uL RBC (3.80-5.40) m/uL Hgb (11.4-16.0) gm/dL Hct (34.0-46.0) % MCV (80.0-100.0) fL MCH (25.0-35.0) pg MCHC (31.0-37.0) g/dL RDW (11.5-15.5) % Plt Count (150-450) k/uL MPV Neutrophils % % Lymphocytes % % Monocytes % % Eosinophils % % Basophils % % Neutrophils # (1.3-7.7) k/uL Lymphocytes # (1.0-4.8) k/uL Monocytes # (0-1.0) k/uL Eosinophils # (0-0.7) k/uL Basophils # (0-0.2) k/uL Sodium (137-145) mmol/L Potassium (3.5-5.1) mmol/L Chloride (98-107) mmol/L Carbon Dioxide (22-30) mmol/L Anion Gap mmol/L BUN (7-17) mg/dL Creatinine (0.52-1.04) mg/dL Est GFR (CKD-EPI)AfAm (>60 ml/min/1.73 sqM) Est GFR (CKD-EPI)NonAf (>60 ml/min/1.73 sqM) Glucose (74-99) mg/dL Plasma Lactic Acid Ollie (0.7-2.0) mmol/L Calcium (8.4-10.2) mg/dL Total Bilirubin (0.2-1.3) mg/dL AST (14-36) U/L ALT (4-34) U/L Alkaline Phosphatase (38-126) U/L Troponin I <0.012 (0.000-0.034) ng/mL Total Protein (6.3-8.2) g/dL Albumin (3.5-5.0) g/dL Disposition Is patient prescribed a controlled substance at d/c from ED?: No Time of Disposition: 13:32 <Barry Waggoner - Last Filed: 09/05/21 16:45> <Carol Gunter - Last Filed: 09/07/21 23:34> Clinical Impression: Musculoskeletal back pain Disposition: HOME SELF-CARE Condition: Good Instructions (If sedation given, give patient instructions): Back Pain (ED) Additional Instructions: Follow-up with your primary care doctor this week. Return to the emergency room with any new or concerning symptoms including chest pain or difficulty in breathing. Referrals: Franco Sabillon MD [Primary Care Provider] - 1-2 days
[2021-09-05 12:39] LABS: Basophils # (A) 0.1 k/uL (0-0.2); Basophils % (A) 1 %; Eosinophils # (A) 0.1 k/uL (0-0.7); Eosinophils % (A) 1 %; HGB 14.9 gm/dL (11.4-16.0); Lymphocytes # (A) 3.5 k/uL (1.0-4.8); Lymphocytes % (A) 38 %; MCH 30.9 pg (25.0-35.0); MCHC 32.4 g/dL (31.0-37.0); MCV 95.5 fL (80.0-100.0); Monocytes # (A) 0.6 k/uL (0-1.0); Monocytes % (A) 6 %; Neutrophils # (A) 4.9 k/uL (1.3-7.7); Neutrophils % (A) 53 %; Platelet Count 299 k/uL (150-450); RBC 4.81 m/uL (3.80-5.40); RDW 12.9 % (11.5-15.5); WBC 9.2 k/uL (3.8-10.6)
--- NOTE | 2021-09-05 12:54 | XR ---
EXAMINATION TYPE: XR chest 2V DATE OF EXAM: 09/05/2021 COMPARISON: 10/15/2017 HISTORY: Chest pain TECHNIQUE: Frontal and lateral views of the chest are obtained. FINDINGS: There is no focal air space opacity. No evidence for pneumothorax. No pleural effusion. The cardiac silhouette size is within normal limits. The osseous structures are grossly intact. IMPRESSION: 1. No acute cardiopulmonary process.
[2021-09-05 13:01] LABS: ALT 16 U/L (4-34); AST 25 U/L (14-36); African American GFR (CKD) >90 (>60 ml/min/1.73 sqM); Albumin 4.4 g/dL (3.5-5.0); Alkaline Phosphatase 75 U/L (38-126); Anion Gap 8 mmol/L; Blood Urea Nitrogen 12 mg/dL (7-17); Calcium 9.4 mg/dL (8.4-10.2); Carbon Dioxide 23 mmol/L (22-30); Chloride 108 mmol/L (98-107); Glucose 101 mg/dL (74-99); Non-African American GFR(CKD) >90 (>60 ml/min/1.73 sqM); Potassium 4.3 mmol/L (3.5-5.1); Sodium 139 mmol/L (137-145); Total Bilirubin 0.5 mg/dL (0.2-1.3); Total Protein 7.3 g/dL (6.3-8.2)
[2021-09-05 13:42] VITALS: BP 149/86; PULSE 70; RESP 18
== END 2021-09-05 13:42 | disposition home or self-care (01) ==
LOC: EC 11:19
DX: M54.59 Other low back pain (principal); J45.909 Unspecified asthma, uncomplicated; H91.90 Unspecified hearing loss, unspecified ear; F41.9 Anxiety disorder, unspecified; F17.200 Nicotine dependence, unspecified, uncomplicated
CPT/HCPCS: 36415; 71046; 80053; 83605; 84484; 85025; 93005; 99284

== ENCOUNTER → 2022-05-10 | Outpatient (CLI) | payer BC ==
--- NOTE | 2022-05-13 08:30 | MM ---
Reason for Exam: Screening (asymptomatic). Last mammogram was performed 2 year(s) and 10 month(s) ago. Patient History: Menarche at age 12. First Full-Term at age 24. Left ovary removed at age 37. Right ovary removed at age 37. Hysterectomy at age 28. Postmenopausal. Maternal grandmother had ovarian cancer, age 30. Maternal aunt had breast cancer, age 45. Paternal aunt had breast cancer, age 42. Risk Values: Gay 5 year model risk: 0.8%. NCI Lifetime model risk: 8.4%. Prior Study Comparison: 07/08/2005 Right Diagnostic Mammogram, [facility]. 04/07/2018 Screening Mammogram, [facility]. 07/07/2019 Bilateral Screening Mammogram, [facility]. Tissue Density: The breast tissue is almost entirely fat. Findings: Analyzed By CAD. There is no suspicious group of microcalcifications or new suspicious mass in either breast. Overall Assessment: Negative, BI-RAD 1 Management: Screening Mammogram of both breasts in 1 year. A clinical breast exam by your physician is recommended on an annual basis and results should be correlated with mammographic findings. Electronically signed and approved by: Ricci Jimenez M.D. Radiologis
== END | disposition home or self-care (01) ==
LOC: RADMAMWWP 15:36
PROVIDERS: ATTEND Family Medicine
DX: Z12.31 Encounter for screening mammogram for malignant neoplasm of breast (principal)
CPT/HCPCS: 77063; 77067

== ENCOUNTER 2023-01-17 17:56 | Emergency (ER) | payer BC ==
--- NOTE | 2023-01-17 19:37 | XR ---
EXAMINATION TYPE: XR foot complete LT DATE OF EXAM: 01/17/2023 CLINICAL HISTORY: pain TECHNIQUE: Frontal, lateral and oblique images of the left foot are obtained. COMPARISON: None. FINDINGS: There is no acute fracture/dislocation evident. The joint spaces appear within normal hernandez its. The overlying soft tissue appears unremarkable. IMPRESSION: There is no acute fracture or dislocation. ICD 10 NO FRACTURE, INITIAL EVALUATION
--- NOTE | 2023-01-17 19:38 | XR ---
EXAMINATION TYPE: XR ankle complete LT DATE OF EXAM: 01/17/2023 COMPARISON: NONE HISTORY: Pain TECHNIQUE: 3 views of the left ankle are submitted for evaluation. FINDINGS: There is no evidence for fracture or dislocation. Ankle mortise is intact. Soft tissues are within normal limits. IMPRESSION: 1. No evidence for acute fracture.
--- NOTE | 2023-01-17 20:08 | ED ---
General Adult HPI - General Chief complaint: Extremity Injury, Lower Stated complaint: Lt foot injury Time Seen by Provider: 01/17/23 18:40 Source: patient Mode of arrival: wheelchair - History of Present Illness Initial comments: 47-year-old female presents emergency room reporting left foot pain. Just prior to hospital arrival the patient was trying to bring groceries into the house. She sustained an inversion injury and heard a pop in her left ankle. She now has a lot of pain on the lateral aspect of the left foot. There is a minimal amount of swelling. She did not take anything for pain before coming into the emergency department. Reports to break it previously as a child. Never required surgery. Does not have an orthopedist at this time. No other alleviating, precipitating modifying factors - Related Data Home Medications Medication Instructions Recorded Confirmed Acetaminophen [Tylenol] 1,000 mg PO Q4H PRN 07/26/20 09/05/21 Allergies Allergy/AdvReac Type Severity Reaction Status Date / Time amoxicillin [Amoxicillin] Allergy Rash/Hives Verified 09/05/21 12:37 aspirin Allergy Rash/Hives Verified 09/05/21 12:37 cephalexin monohydrate Allergy Anaphylaxis Verified 09/05/21 12:37 [From Keflex] ciprofloxacin [From Cipro] Allergy Rash/Hives Verified 09/05/21 12:37 ciprofloxacin HCl Allergy Rash/Hives Verified 09/05/21 12:37 [From Cipro] diphenhydramine Allergy Rash/Hives Verified 09/05/21 12:37 [From Benadryl] Iodinated Contrast Media Allergy Lip Verified 09/05/21 12:37 [Iodinated Contrast Media - Swelling IV Dye] latex Allergy Rash/Hives Verified 09/05/21 12:37 methylprednisolone Allergy Rash/Hives Verified 09/05/21 12:37 [From Solu-Medrol] NSAIDS (Non-Steroidal Allergy Rash/Hives Verified 09/05/21 12:37 Anti-Inflamma penicillin G Allergy Rash/Hives Verified 09/05/21 12:37 sulfamethoxazole Allergy Rash/Hives Verified 09/05/21 12:37 [From Bactrim] trimethoprim [From Bactrim] Allergy Rash/Hives Verified 09/05/21 12:37 STEROIDS Allergy Rash/Hives Uncoded 09/05/21 11:23 Review of Systems ROS Statement: Those systems with pertinent positive or pertinent negative responses have been documented in the HPI. ROS Other: All systems not noted in ROS Statement are negative. Past Medical History Past Medical History: Asthma, GERD/Reflux, Hearing Disorder / Deafness Additional Past Medical History / Comment(s): HIATAL HERNIA, pelvic muscle disorder, adrenal ademoma History of Any Multi-Drug Resistant Organisms: None Reported Past Surgical History: Section, Hernia Repair, Hysterectomy Additional Past Surgical History / Comment(s): OOPHERECTOMY, WITH ADHESION REPAIR Past Psychological History: Anxiety Smoking Status: Current every day smoker Past Alcohol Use History: None Reported Past Drug Use History: None Reported General Exam Head exam: Present: atraumatic, normocephalic, normal inspection Extremities exam: Present: other (Tenderness to palpation of the left fifth digit extends to the lateral malleolus. No ecchymosis. Minimal swelling. 2+ DP and PT pulses) Course Vital Signs 01/17/23 01/17/23 18:35 20:30 Temperature 99.1 F 98.2 F Pulse Rate 76 67 Respiratory 18 20 Rate Blood Pressure 148/74 137/89 O2 Sat by Pulse 98 98 Oximetry Medical Decision Making - Medical Decision Making Was pt. sent in by a medical professional or institution ([facility]IST[facility] Holt, PAYROLL AND BENEFITS MANAGER, urgent care, hospital, or retirement...) When possible be specific @ -No Did you speak to anyone other than the patient for history (EMS, parent, family, police, friend...)? What history was obtained from this source @ -No Did you review nursing and triage notes (agree or disagree)? Why? @ -I reviewed and agree with nursing and triage notes Were old charts reviewed (outside hosp., previous admission, EMS record, old EKG, old radiological studies, urgent care reports/EKG's, retirement records)? Report findings @ -No old charts were reviewed Differential Diagnosis (chest pain, altered mental status, abdominal pain women, abdominal pain men, vaginal bleeding, weakness, fever, dyspnea, syncope, headache, dizziness, GI bleed, back pain, seizure, CVA, palpatations, mental health, musculoskeletal)? @ -Differential Musculoskeletal Muscular strain, contusion, ligament sprain, fracture, arthritis, septic arthritis, bursitis, cellulitis, muscle spasm, nerve compression, DVT, arterial occlusion, herpes zoster, electrolyte abnormality, tumor.... This is not meant to be in all inclusive list EKG interpreted by me (3pts min.). @ -Not done X-rays interpreted by me (1pt min.). @ -Yes and demonstrates no acute fracture CT interpreted by me (1pt min.). @ -None done U/S interpreted by me (1pt. min.). @ -None done What testing was considered but not performed or refused? (CT, X-rays, U/S, labs)? Why? @ -None What meds were considered but not given or refused? Why? @ Pain meds however patient refused Did you discuss the management of the patient with other professionals (professionals i.e. DrJewell, PA, PAYROLL AND BENEFITS MANAGER, lab, RT, psych nurse, executive secretary social welfare, principal systems engineer, teacher, consumer safety officer, piano case maker)? Give summary @ -No Was smoking cessation discussed for >3mins.? @ -No Was critical care preformed (if so, how long)? @ -No Were there social determinants of health that impacted care today? How? (Homelessness, low income, unemployed, alcoholism, drug addiction, transportation, low edu. Level, literacy, decrease access to med. care, care home, rehab)? @ -No Was there de-escalation of care discussed even if they declined (Discuss DNR or withdrawal of care, Hospice)? DNR status @ -No What co-morbidities impacted this encounter? (DM, HTN, Smoking, COPD, CAD, Cancer, CVA, ARF, Chemo, Hep., AIDS, mental health diagnosis, sleep apnea, morbid obesity)? @ -None Was patient admitted / discharged? Hospital course, mention meds given and route, prescriptions, significant lab abnormalities, going to OR and other pertinent info. @ -Patient placed into room 33. Offered pain meds however she refused. X-rays performed of the left ankle and foot which demonstrates no acute fracture. Patient placed in an Josiah wrap and given a prescription for crutches. Patient is to weight-bear as tolerated. Rest, ice and elevate. Take Tylenol for pain. If she has continued pain she may need further imaging and evaluation. Instructed. to 4 days return for any new or worsening symptoms. Patient agreeable to this plan and was discharged in stable condition Undiagnosed new problem with uncertain prognosis? @ -Yes Drug Therapy requiring intensive monitoring for toxicity (Heparin, Nitro, Insulin, Cardizem)? @ -No Were any procedures done? @ -No Diagnosis/symptom? @ -Acute left foot pain, status post inversion injury Acute, or Chronic, or Acute on Chronic? @ -Acute Uncomplicated (without systemic symptoms) or Complicated (systemic symptoms)? @ -Uncomplicated Side effects of treatment? @ -No Exacerbation, Progression, or Severe Exacerbation? @ -No Poses a threat to life or bodily function? How? (Chest pain, [place], [place], pneumonia, PE, COPD, DKA, ARF, appy, cholecystitis, CVA, Diverticulitis, Homicidal, Suicidal, threat to staff... and all critical care pts) @ -No Disposition Clinical Impression: Left foot pain Disposition: HOME SELF-CARE Condition: Stable Instructions (If sedation given, give patient instructions): Foot Sprain (ED) Additional Instructions: Weight bear as tolerated. Rest, ice and elevate the extremity. Follow up with your primary care doctor next week. May need repeat imaging and referral to ortho if your pain persists Is patient prescribed a controlled substance at d/c from ED?: No Referrals: Franco Sabillon MD [Primary Care Provider] - 1-2 days Jose Mackey DO [Doctor of Osteopathic Medicine] - 1-2 days Time of Disposition: 20:08
[2023-01-17 20:32] VITALS: BP 137/89; PULSE 67; RESP 20; TEMP 98.2
== END 2023-01-17 20:32 | disposition home or self-care (01) ==
LOC: EC 17:56
DX: M79.672 Pain in left foot (principal); J45.909 Unspecified asthma, uncomplicated; F41.9 Anxiety disorder, unspecified; F17.200 Nicotine dependence, unspecified, uncomplicated; Z88.2 Allergy status to sulfonamides; Z88.1 Allergy status to other antibiotic agents; Z88.6 Allergy status to analgesic agent; Z88.0 Allergy status to penicillin; Z88.8 Allergy status to other drugs, medicaments and biological substances; Z91.040 Latex allergy status; Z79.899 Other long term (current) drug therapy
CPT/HCPCS: 99283